=== PATIENT | female | born 1960 | race Caucasian/White ===

== ENCOUNTER 2019-05-19 14:08 | Emergency (ER) | payer BC, OTHER ==
[~2019-05-19] VITALS: Ht 162.6 cm; Wt 117.9 kg
[~2019-05-19 14:08] MED LIST: LEVOTHYROXINE100 MCG PO; LOSARTAN POTAS100 MG PO; METFORMIN PO; OMEPRAZOLE40 MG PO
[2019-05-19] MEDS ORDERED: KETOROLAC TROMETHAMINE 60 MG/2 ML VIAL IM ONE (15:00)
[2019-05-19] MEDS ORDERED: KETOROLAC TROMETHAMINE 60 MG/2 ML VIAL ONE (15:01)
--- NOTE | 2019-05-19 16:55 | Diagnostic Imaging Report ---
INDICATION: Left calf pain. COMPARISONS: None. LOWER EXTREMITY ULTRASOUND: 2-D, color and Doppler waveform imaging was obtained of the left common femoral, superficial femoral and popliteal veins. Normal compressibility, wave forms and augmentation were demonstrated. No intraluminal thrombus was identified. The visualized calf veins are unremarkable. IMPRESSION: No evidence of left lower extremity deep vein thrombosis. Signed by: Dr. Jude Rivera MD on 05/19/2019 4:51 PM
[2019-05-19] MEDS ORDERED: NAPROXEN250 MG PO (17:34)
== END 2019-05-19 17:44 | disposition home or self-care (01) ==
LOC: FSED 14:08
DX: I80.02 Phlebitis and thrombophlebitis of superficial vessels of left lower extremity (principal); I10 Essential (primary) hypertension; E11.65 Type 2 diabetes mellitus with hyperglycemia; E03.9 Hypothyroidism, unspecified; K21.9 Gastro-esophageal reflux disease without esophagitis; Z87.891 Personal history of nicotine dependence; R25.2 Cramp and spasm; Z79.84 Long term (current) use of oral hypoglycemic drugs
CPT/HCPCS: 80053; 85025; 93971 ×2; 99284; J1885